=== PATIENT | male | born 1950 | race African-American/Black ===

== ENCOUNTER 2017-02-06 09:17 | Emergency (ER) | payer MEDICARE, OTHER ==
[2017-02-06 10:00] VITALS: BP 133/71
--- NOTE | 2017-02-06 11:01 | UC ---
Throat Pain/Nasal Anatoly HPI - HPI Summary HPI Summary: Pain in R throat, R ear with swallowing, has noticed painful lump on R side of neck starting 3 days ago. No nasal congestion, chronic cough of several months has not changed in recent days. Denies vomiting. - History of Current Complaint Chief Complaint: UCRespiratory Stated Complaint: SORE THROAT EAR PAIN Time Seen by Provider: 02/06/17 10:49 Hx Obtained From: Patient Onset/Duration: Gradual Onset, Lasting Days Severity: Moderate Cough: Nonproductive Associated Signs & Symptoms: Negative: Wheezing, Sinus Discomfort, Nasal Discharge, Vomiting, Rash - Allergies/Home Medications Allergies/Adverse Reactions: Allergies Allergy/AdvReac Type Severity Reaction Status Date / Time Seasonal Allergies Allergy Sneezing Uncoded 08/06/15 10:38 PMH/Surg Hx/FS Hx/Imm Hx Endocrine History Of: Denies: Diabetes, Thyroid Disease Cardiovascular History Of: Reports: Cardiac Disorders - Atrial Fibrillation, Hypertension Denies: Myocardial Infarction Respiratory History Of: Denies: COPD, Asthma GI/ History Of: Reports: Gastrointestinal Bleed Denies: Ulcer - Surgical History Surgical History: None - Family History Known Family History: Positive: Hypertension - Social History Occupation: Retired Alcohol Use: Occasionally Substance Use Type: None Smoking Status (MU): Former Smoker Type: Cigarettes When Did the Patient Quit Smoking/Using Tobacco: 2013 Household Exposure Type: Cigarettes - Immunization History Most Recent Influenza Vaccination: pt states he doesn't recieve the flu vaccine anymore Most Recent Tetanus Shot: > 10 years Review of Systems Constitutional: Fever Skin: Negative Eyes: Negative ENT: Sore Throat, Ear Ache Respiratory: Negative Cardiovascular: Negative Gastrointestinal: Negative Genitourinary: Negative Motor: Negative Neurovascular: Negative Musculoskeletal: Negative Neurological: Negative Psychological: Negative All Other Systems Reviewed And Are Negative: Yes Physical Exam Triage Information Reviewed: Yes Appearance: Well-Appearing, No Pain Distress, Well-Nourished Vital Signs: Initial Vital Signs Temp 97.8 F 02/06/17 09:56 Pulse 73 02/06/17 09:56 Resp 18 02/06/17 09:56 BP 133/71 02/06/17 09:56 Pulse Ox 100 02/06/17 09:56 Eye Exam: Normal Eyes: Positive: Conjunctiva Clear ENT: Positive: Pharyngeal erythema - R tonsil, TMs normal, Tonsillar swelling. Negative: Nasal congestion, Nasal drainage, TM bulging, TM dull, TM red, Tonsillar exudate Dental Exam: Normal Neck: Positive: Tenderness @, Enlarged Nodes @ - R ant cervical node Respiratory Exam: Normal Respiratory: Positive: Chest non-tender, Lungs clear, Normal breath sounds, No respiratory distress, No accessory muscle use Cardiovascular Exam: Normal Cardiovascular: Positive: RRR, No Murmur Musculoskeletal Exam: Normal Musculoskeletal: Positive: ROM Intact Neurological Exam: Normal Neurological: Positive: Alert Psychological Exam: Normal Skin Exam: Normal Throat Pain/Nasal Course/Dx - Differential Dx/Diagnosis Provider Diagnoses: tonsillitis Discharge - Discharge Plan Condition: Stable Disposition: HOME Prescriptions: Amoxicillin (*) [Amoxicillin 875 MG (*)] 875 mg PO BID #10 tab Patient Education Materials: Tonsillitis (ED) Referrals: Danial Fitzpatrick MD [Primary Care Provider] - Additional Instructions: If you are not fever-free and clearly improving within 48 hours, please see Dr. Fitzpatrick or return here for follow-up.
== END 2017-02-06 11:10 | disposition home or self-care (01) ==
LOC: UCEAST 09:17
DX: J03.90 Acute tonsillitis, unspecified (principal); I48.91 Unspecified atrial fibrillation; I10 Essential (primary) hypertension
CPT/HCPCS: 87651; 99212; G0463

== ENCOUNTER 2017-09-26 10:54 | Emergency (ER) | payer MEDICARE, OTHER ==
[2017-09-26 11:20] VITALS: BP 137/80
--- NOTE | 2017-09-26 13:16 | RAD ---
INDICATION: Right knee injury COMPARISON: None TECHNIQUE: AP, lateral, tunnel, and sunrise views were obtained. FINDINGS: There are no acute bony findings. The osseous structures appear normal for age. There is minimal spurring tibial spines. Joint spaces are preserved. There is no suprapatellar joint effusion. There are distal SFA and popliteal arterial calcifications. IMPRESSION: NO ACUTE BONY FINDINGS.
--- NOTE | 2017-09-26 13:19 | UC ---
Knee Pain HPI - HPI Summary HPI Summary: c/o worsening right knee pain- - History of Current Complaint Chief Complaint: UCLowerExtremity Stated Complaint: KNEE INJURY Time Seen by Provider: 09/26/17 12:36 Hx Obtained From: Patient Onset/Duration: Gradual Onset, Worse Since - walking up stairs and feeling a pop a couple of days a go Severity Initially: Moderate Severity Currently: Moderate Location Of Injury: right knee Character: Aching, Throbbing Aggravating Factor(s): Movement, Weight Bearing Alleviating Factor(s): Rest, Position Associated Signs And Symptoms: Positive: Swelling Able to Bear Weight: Yes - Allergies/Home Medications Allergies/Adverse Reactions: Allergies Allergy/AdvReac Type Severity Reaction Status Date / Time Seasonal Allergies Allergy Sneezing Uncoded 09/26/17 11:20 Home Medications: Home Medications B-Complex Vitamins [Vitamin B Complex] 1 tab PO DAILY 09/26/17 [History Confirmed 09/26/17] Metoprolol Tartrate TAB* [Lopressor TAB*] 25 mg PO DAILY 09/26/17 [History Confirmed 09/26/17] PMH/Surg Hx/FS Hx/Imm Hx Previously Healthy: No Endocrine History: Dyslipidemia Cardiovascular History: Hypertension - Surgical History Surgical History: None - Family History Known Family History: Positive: Hypertension - Social History Occupation: Retired Lives: With Family Alcohol Use: Daily Alcohol Amount: 1 beer Substance Use Type: None Smoking Status (MU): Former Smoker Type: Cigarettes When Did the Patient Quit Smoking/Using Tobacco: 2013 Household Exposure Type: Cigarettes - Immunization History Most Recent Influenza Vaccination: Not uTD Most Recent Tetanus Shot: > 10 years Review of Systems Constitutional: Negative Skin: Negative Eyes: Negative ENT: Negative Respiratory: Negative Cardiovascular: Negative Gastrointestinal: Negative Genitourinary: Negative Motor: Negative Neurovascular: Negative Musculoskeletal: Arthralgia - right knee Neurological: Negative Psychological: Negative Is Patient Immunocompromised?: No All Other Systems Reviewed And Are Negative: Yes Physical Exam Triage Information Reviewed: Yes Appearance: Well-Appearing, No Pain Distress, Well-Nourished Vital Signs: Initial Vital Signs Temp 98.1 F 09/26/17 11:15 Pulse 87 09/26/17 11:15 Resp 16 09/26/17 11:15 BP 137/80 09/26/17 11:15 Pulse Ox 100 09/26/17 11:15 Vital Signs Reviewed: Yes Eye Exam: Normal Eyes: Positive: Conjunctiva Clear ENT Exam: Normal ENT: Positive: Normal ENT inspection, Hearing grossly normal. Negative: Nasal drainage, Trismus, Muffled voice, Hoarse voice Dental Exam: Normal Neck exam: Normal Neck: Positive: Supple, Nontender Respiratory Exam: Normal Respiratory: Positive: Chest non-tender, No respiratory distress, No accessory muscle use Cardiovascular Exam: Normal Cardiovascular: Positive: RRR, Pulses Normal, Brisk Capillary Refill Musculoskeletal Exam: Normal Musculoskeletal: Positive: Strength Intact, ROM Intact, No Edema Neurological Exam: Normal Neurological: Positive: Alert, Muscle Tone Normal Psychological Exam: Normal Skin Exam: Normal Diagnostics - Radiology No standard instances Xray Interpretation: No Acute Changes - minimal bone spurring and normal changes for age Radiology Interpretation Completed By: Radiologist Knee Pain Course/Dx - Course Course Of Treatment: gentle exercise, elastic support antiinflammatories forr with Dr. Victoria (patient preference) - Differential Dx/Diagnosis Provider Diagnoses: Right Knee mild arthritis Discharge - Discharge Plan Condition: Stable Disposition: HOME Prescriptions: Meloxicam(NF) [Mobic(NF)] 7.5 mg PO BID #40 tab Patient Education Materials: Osteoarthritis (ED) Referrals: David Victoria MD [Medical Doctor] - 1 Week
== END 2017-09-26 13:25 | disposition home or self-care (01) ==
LOC: UCEAST 10:54
DX: M17.11 Unilateral primary osteoarthritis, right knee (principal); M25.561 Pain in right knee; E78.5 Hyperlipidemia, unspecified; I10 Essential (primary) hypertension; Z87.891 Personal history of nicotine dependence
CPT/HCPCS: 99212; G0463

== ENCOUNTER 2017-10-30 12:08 | Emergency (ER) | payer OTHER ==
[2017-10-30 12:23] VITALS: BP 107/65
--- NOTE | 2017-11-21 10:03 | UC ---
Respiratory Complaint HPI - HPI Summary HPI Summary: 67yo pt c/o nasal congestion and some sore throat x 2 days, but cough has been persistent for about 2 weeks associated with pleuritic chest pain. - History of Current Complaint Chief Complaint: UCRespiratory Stated Complaint: COUGH Time Seen by Provider: 10/30/17 13:26 Hx Obtained From: Patient Onset/Duration: Gradual Onset Severity Initially: Moderate Pain Intensity: 0 Pain Scale Used: 0-10 Numeric - Allergies/Home Medications Allergies/Adverse Reactions: Allergies Allergy/AdvReac Type Severity Reaction Status Date / Time No Known Allergies Allergy Verified 10/30/17 12:20 PMH/Surg Hx/FS Hx/Imm Hx Previously Healthy: Yes - Surgical History Surgical History: None - Family History Known Family History: Positive: Hypertension - Social History Alcohol Use: Daily Alcohol Amount: 1 beer Substance Use Type: None Smoking Status (MU): Former Smoker Type: Cigarettes When Did the Patient Quit Smoking/Using Tobacco: 2012 Household Exposure Type: Cigarettes - Immunization History Most Recent Influenza Vaccination: Not uTD Most Recent Tetanus Shot: > 10 years Review of Systems Constitutional: Negative Skin: Negative Eyes: Negative ENT: Nasal Discharge, Sinus Congestion Respiratory: Cough, Other - plueritic chest pain with mild yellow sputum Cardiovascular: Negative Gastrointestinal: Negative Genitourinary: Negative Motor: Negative Neurovascular: Negative Musculoskeletal: Negative Neurological: Negative Psychological: Negative All Other Systems Reviewed And Are Negative: Yes Physical Exam Triage Information Reviewed: Yes Appearance: No Pain Distress Vital Signs: Initial Vital Signs Temp 36.6 C 10/30/17 12:21 Pulse 88 10/30/17 12:21 Resp 20 10/30/17 12:21 BP 107/65 10/30/17 12:21 Pulse Ox 100 10/30/17 12:21 Eye Exam: Normal Eyes: Positive: Conjunctiva Clear ENT Exam: Normal ENT: Positive: Pharyngeal erythema, Nasal congestion Dental Exam: Normal Neck exam: Normal Neck: Positive: 1 Respiratory Exam: Normal Respiratory: Positive: Rhonchi - with cough Cardiovascular Exam: Normal Abdominal Exam: Normal Musculoskeletal Exam: Normal Neurological Exam: Normal Psychological Exam: Normal Skin Exam: Normal UC Diagnostic Evaluation - Laboratory O2 Sat by Pulse Oximetry: 100 Respiratory Course/Dx - Course Course Of Treatment: Z nacho for protracted cough with sputum/acute bronchitis - Differential Dx/Diagnosis Provider Diagnoses: Acute bronchitis Discharge - Discharge Plan Condition: Stable Disposition: HOME Prescriptions: Azithromycin TAB* [Zithromax TAB (Z-NACHO) 250 mg #6 tabs] 2 tab PO .TODAY, THEN 1 DAILY #1 nacho Patient Education Materials: Acute Bronchitis (ED) Referrals: Danial Fitzpatrick MD [Primary Care Provider] - Additional Instructions: as tolerated
== END 2017-10-30 13:53 | disposition home or self-care (01) ==
LOC: UCEAST 12:08
DX: J20.9 Acute bronchitis, unspecified (principal); Z87.891 Personal history of nicotine dependence
CPT/HCPCS: 99212; G0463

== ENCOUNTER 2018-10-20 11:08 | Emergency (ER) | payer MEDICARE, OTHER ==
[2018-10-20 11:30] VITALS: BP 115/75
[2018-10-20] MEDS ORDERED: Azithromycin TAB* 250 MG PO ONE (11:39)
--- NOTE | 2018-10-20 11:44 | UC ---
Respiratory Complaint HPI - HPI Summary HPI Summary: 68 yo B male c/o cough with yellow sputum x 2 weeks associated with pleuritic CP , denies f/c, NON smoker - History of Current Complaint Chief Complaint: UCGeneralIllness Stated Complaint: COUGH CONGESTION Time Seen by Provider: 10/20/18 11:30 Hx Obtained From: Patient Onset/Duration: Sudden Onset Severity Initially: Moderate Severity Currently: Moderate Pain Intensity: 0 Character: Cough: Productive Associated Signs And Symptoms: Positive: Pleuritic Chest Pain. Negative: Nasal Congestion - Allergies/Home Medications Allergies/Adverse Reactions: Allergies Allergy/AdvReac Type Severity Reaction Status Date / Time No Known Allergies Allergy Verified 10/20/18 11:17 Home Medications: Home Medications Aspirin 81 mg CHEW TAB* 81 mg PO DAILY 10/20/18 [History Confirmed 10/20/18] PMH/Surg Hx/FS Hx/Imm Hx - Surgical History Surgical History: None - Family History Known Family History: Positive: Hypertension - Social History Alcohol Use: Occasionally Alcohol Amount: 1 beer Substance Use Type: None Smoking Status (MU): Former Smoker Type: Cigarettes When Did the Patient Quit Smoking/Using Tobacco: 2012 Household Exposure Type: Cigarettes - Immunization History Most Recent Influenza Vaccination: Not uTD Most Recent Tetanus Shot: > 10 years Review of Systems All Other Systems Reviewed And Are Negative: Yes Constitutional: Positive: Negative Skin: Positive: Negative Eyes: Positive: Negative ENT: Positive: Negative Respiratory: Positive: Cough Cardiovascular: Positive: Negative Gastrointestinal: Positive: Negative Genitourinary: Positive: Negative Musculoskeletal: Positive: Negative Neurological: Positive: Negative Psychological: Positive: Negative Physical Exam - Summary Physical Exam Summary: Vital Signs Reviewed: Yes Skin: Positive: Warm Head/Face: Positive: Normal Head/Face Inspection Eyes: Positive: Normal ENT: Positive: Normal ENT inspection Neck: Positive: Supple Respiratory/Lung Sounds: Positive: diffuse rhonchi with cough Cardiovascular: Positive: Normal, RRR, S1, S2 Abdomen Description: Positive: Nontender Musculoskeletal: Positive: Normal Neurological: Positive: Normal Psychiatric: Positive: Normal, Affect/Mood Appropriate Vital Signs: Initial Vital Signs Temp 36.8 C 10/20/18 11:20 Pulse 82 10/20/18 11:20 Resp 18 10/20/18 11:20 BP 115/75 10/20/18 11:20 Pulse Ox 96 10/20/18 11:20 UC Diagnostic Evaluation - Laboratory O2 Sat by Pulse Oximetry: 96 Respiratory Course/Dx - Differential Dx/Diagnosis Provider Diagnosis: Bronchitis Discharge - Sign-Out/Discharge Documenting (check all that apply): Patient Departure All imaging exams completed and their final reports reviewed: Yes - Discharge Plan Condition: Stable Disposition: HOME Prescriptions: Azithromycin TAB* [Zithromax TAB (Z-NACHO) 250 mg #6 tabs] 2 tab PO .TODAY, THEN 1 DAILY 5 Days #1 nacho Patient Education Materials: Acute Bronchitis (ED) Additional Instructions: PLEASE [employer]ED [employer] OFF[employer]ER MUCINEX DM OVER THE COUNTER AND TAKE ONE TAB EVERY 12 HRS DIRECTED - Billing Disposition and Condition Condition: STABLE Disposition: Home
== END 2018-10-20 11:52 | disposition home or self-care (01) ==
LOC: UCEAST 11:08
DX: J40 Bronchitis, not specified as acute or chronic (principal); Z79.82 Long term (current) use of aspirin; Z87.891 Personal history of nicotine dependence
CPT/HCPCS: 99212; A9270-GY; G0463

== ENCOUNTER 2018-11-16 09:39 | Emergency (ER) | payer MEDICARE ==
[2018-11-16 10:01] VITALS: BP 118/76
--- NOTE | 2018-11-16 10:07 | UC ---
Lower Extremity/Ankle HPI - HPI Summary HPI Summary: Patient is a 68-year-old male who presents to the urgent care with a chief complaint of not improving he's a right foot cellulitis. He reports "I need an instructed antibiotics". He reports that he has been taking Keflex for the last 10 days. He reports the swelling still present and the redness still present. He also reports that he would not go to the emergency department for further workup and management. He denies any fever denies any chills, he denies any Pain, denies any shortness of breath, chest pain or palpitations. - History of Current Complaint Chief Complaint: UCLowerExtremity Stated Complaint: FOOT PAIN Time Seen by Provider: 11/16/18 09:42 Pain Intensity: 3 - Allergies/Home Medications Allergies/Adverse Reactions: Allergies Allergy/AdvReac Type Severity Reaction Status Date / Time No Known Allergies Allergy Verified 11/16/18 09:51 Home Medications: Home Medications Ibuprofen 400 mg PO ONCE PRN 11/16/18 [History Confirmed 11/16/18] PMH/Surg Hx/FS Hx/Imm Hx Previously Healthy: Yes Endocrine History: Dyslipidemia Cardiovascular History: Hypertension - Surgical History Surgical History: None - Family History Known Family History: Positive: Hypertension - Social History Alcohol Use: Occasionally Alcohol Amount: 1 beer Substance Use Type: None Smoking Status (MU): Former Smoker Type: Cigarettes When Did the Patient Quit Smoking/Using Tobacco: 2013 Household Exposure Type: Cigarettes - Immunization History Most Recent Influenza Vaccination: Not uTD Most Recent Tetanus Shot: > 10 years Review of Systems All Other Systems Reviewed And Are Negative: Yes Constitutional: Positive: Negative Skin: Positive: Other - Right foot swelling and erythema ENT: Positive: Negative Respiratory: Positive: Negative Cardiovascular: Positive: Negative Gastrointestinal: Positive: Negative Genitourinary: Positive: Negative Motor: Positive: Negative Neurovascular: Positive: Negative Musculoskeletal: Positive: Negative Neurological: Positive: Negative Psychological: Positive: Negative Is Patient Immunocompromised?: No Physical Exam - Summary Physical Exam Summary: VITAL SIGNS: Reviewed. GENERAL: Patient is a well developed and nourished male who is sitting comfortable in the stretcher. Patient is not in any acute respiratory distress. HEAD AND FACE: Normocephalic and atraumatic. EYES: PERRLA, EOMI x 2, EARS: Hearing grossly intact. MOUTH: Oropharynx within normal limits. NECK: Supple, trachea is midline, no adenopathy, no JVD, no carotid bruit, no c- spine tenderness, neck with full ROM. CHEST: Symmetric, no tenderness at palpation LUNGS: CTA B/L. No wheezing or crackles. CVS: RRR, S1 and S2 present, no murmurs or gallops appreciated. ABDOMEN: Soft, NT, No distention. Normal BS. EXTREMITIES: FROM in all major joints, positive right foot swelling and erythema. Good pulses and good capillary.. No calf tenderness. NEURO: Alert and oriented x 3. No acute neurological deficits. Speech is normal and follows commands. Vital Signs: Initial Vital Signs Temp 97 F 11/16/18 09:44 Pulse 81 11/16/18 09:44 Resp 18 11/16/18 09:44 BP 118/76 11/16/18 09:44 Pulse Ox 95 11/16/18 09:44 Lower Extremity Course/Dx - Course Course Of Treatment: I believe that the patient would benefit of I believe further workup and management in the ER however the patient refuses. He only wants to get her menstrual antibiotic to see if the symptoms improved. Therefore the patient will be given Bactrim and discontinue the Keflex. However , the patient was instructed strongly, that the patient should go to the ER if the swelling and redness do not improve in the next 12 hours. The patient understands and agrees. Therefore the patient will be discharged home with follow-up with PCP or go to the ER if the symptoms do not improve. At this time the patient is hemodynamically stable alert and oriented 3. - Differential Dx/Diagnosis Differential Diagnosis/HQI/PQRI: Cellulitis, Contusion, Fracture (Closed), Sprain, Strain Provider Diagnosis: Cellulitis Discharge - Sign-Out/Discharge Documenting (check all that apply): Patient Departure All imaging exams completed and their final reports reviewed: No - Discharge Plan Condition: Good Disposition: HOME Prescriptions: Sulfamethox/Trimethoprim DS* [Bactrim DS 800/160 TAB*] 1 tab PO BID #20 tab Patient Education Materials: Cellulitis (ED) Referrals: Danial Fitzpatrick MD [Primary Care Provider] - Additional Instructions: Take medications as instructed and adhere to plan Take Acetaminophen or ibuprofen for pain or fever Increase your fluid intake Return to the or go to the emergency department if symptoms worsen Follow-up with primary care physician in next 2-3 days - Billing Disposition and Condition Condition: GOOD Disposition: Home
--- NOTE | 2018-11-16 16:40 | UC ---
Course/Dx - Diagnoses Provider Diagnoses: Cellulitis Discharge - Sign-Out/Discharge Documenting (check all that apply): Post-Discharge Follow Up All imaging exams completed and their final reports reviewed: No Studies - Discharge Plan Condition: Good Disposition: HOME Prescriptions: Sulfamethox/Trimethoprim DS* [Bactrim DS 800/160 TAB*] 1 tab PO BID #20 tab Patient Education Materials: Cellulitis (ED) Referrals: Danial Fitzpatrick MD [Primary Care Provider] - Additional Instructions: Take medications as instructed and adhere to plan Take Acetaminophen or ibuprofen for pain or fever Increase your fluid intake Return to the or go to the emergency department if symptoms worsen Follow-up with primary care physician in next 2-3 days - Billing Disposition and Condition Condition: GOOD Disposition: Home
== END 2018-11-16 10:18 | disposition home or self-care (01) ==
LOC: UCEAST 09:39
DX: L03.115 Cellulitis of right lower limb (principal); Z87.891 Personal history of nicotine dependence
CPT/HCPCS: 99212; G0463

== ENCOUNTER 2019-02-19 07:27 | Emergency (ER) | payer MEDICARE ==
[2019-02-19 07:48] VITALS: BP 119/69
--- NOTE | 2019-02-19 08:32 | UC ---
General HPI - HPI Summary HPI Summary: Pleasant 68 yo gentleman c/o cough last couple weeks, progressively worse. Tired of being sick, tired of coughing. No fever / chills. No sob /cp. No hemoptysis. No GI / issues. No rash. - History of Current Complaint Chief Complaint: UCRespiratory Stated Complaint: COUGH Time Seen by Provider: 02/19/19 07:49 Hx Obtained From: Patient, Family/Esthetician Pain Intensity: 0 - Allergy/Home Medications Allergies/Adverse Reactions: Allergies Allergy/AdvReac Type Severity Reaction Status Date / Time No Known Allergies Allergy Verified 02/19/19 07:48 PMH/Surg Hx/FS Hx/Imm Hx Previously Healthy: Yes - Surgical History Surgical History: Yes - Family History Known Family History: Positive: Hypertension - Social History Alcohol Use: Occasionally Alcohol Amount: 1 beer Substance Use Type: None Smoking Status (MU): Former Smoker Type: Cigarettes When Did the Patient Quit Smoking/Using Tobacco: 2012 Household Exposure Type: Cigarettes - Immunization History Most Recent Influenza Vaccination: Not uTD Most Recent Tetanus Shot: > 10 years Review of Systems All Other Systems Reviewed And Are Negative: Yes Constitutional: Positive: Negative Skin: Positive: Negative Eyes: Positive: Negative ENT: Positive: Sore Throat, Nasal Discharge, Sinus Congestion Respiratory: Positive: Cough Cardiovascular: Positive: Negative Gastrointestinal: Positive: Negative Genitourinary: Positive: Negative Motor: Positive: Negative Neurovascular: Positive: Negative Musculoskeletal: Positive: Negative Neurological: Positive: Negative Psychological: Positive: Negative Is Patient Immunocompromised?: No Physical Exam Triage Information Reviewed: Yes Appearance: Well-Appearing, Well-Nourished Vital Signs: Initial Vital Signs Temp 98.2 F 02/19/19 07:43 Pulse 79 02/19/19 07:43 Resp 16 02/19/19 07:43 BP 119/69 02/19/19 07:43 Pulse Ox 99 02/19/19 07:43 Vital Signs Reviewed: Yes Eye Exam: Normal ENT: Positive: Pharyngeal erythema - mild red, c/w cough, Nasal congestion, TM dull Neck exam: Normal Neck: Positive: Supple Respiratory Exam: Other - + rhonchorus cough, tight. No rtx. Respiratory: Positive: No respiratory distress, No accessory muscle use Cardiovascular Exam: Normal Cardiovascular: Positive: RRR, Pulses Normal, Brisk Capillary Refill Abdominal Exam: Normal Abdomen Description: Positive: Nontender Musculoskeletal Exam: Normal - grossly nonfocal Neurological Exam: Normal - grossly nonfocal Psychological Exam: Normal - conversing easily and appropriately, nad Skin Exam: Normal - no visible or reported rash. Nondiaphoretic. Course/Dx - Course Course Of Treatment: Reviewed coa / tx plan. Questions as posed answered to the best of my ability. - Diagnoses Provider Diagnosis: Bronchitis, Bronchospasm Discharge - Sign-Out/Discharge Documenting (check all that apply): Patient Departure All imaging exams completed and their final reports reviewed: No Studies - Discharge Plan Condition: Stable Disposition: HOME Prescriptions: Albuterol HFA INHALER* [Ventolin HFA Inhaler*] 1 - 2 puff INH Q6H PRN #1 mdi PRN Reason: Wheezing Azithromyxin NACHO (NF) [Z-Nacho (Zithromax) 250 mg tabs #6] 2 tab PO .TODAY, THEN 1 DAILY #6 tab Patient Education Materials: Acute Bronchitis (ED), Bronchospasm (ED) Referrals: Danial Fitzpatrick MD [Primary Care Provider] - Additional Instructions: Please follow up with Dr. Fitzpatrick, per routine. Seek medical attention for worse or new problems in the meantime. - Billing Disposition and Condition Condition: STABLE Disposition: Home
--- NOTE | 2019-02-19 08:44 | UC ---
General HPI - HPI Summary HPI Summary: 68 yo gentleman c/o 1 to 1 1/2 week cough. started with sore throat, not anymore, minimal productive. No fever / chills. + household contact with similar sx. No rash. No GI issue. No vis / aud changes. Some ear pain earlier, not now. No issues reported. No edema in legs. sleeps with one pillow. - History of Current Complaint Chief Complaint: UCRespiratory Stated Complaint: COUGH Time Seen by Provider: 02/19/19 07:49 Hx Obtained From: Patient, Family/Family Preservation Caseworker Pain Intensity: 0 - Allergy/Home Medications Allergies/Adverse Reactions: Allergies Allergy/AdvReac Type Severity Reaction Status Date / Time No Known Allergies Allergy Verified 02/19/19 07:48 PMH/Surg Hx/FS Hx/Imm Hx Previously Healthy: Yes - Surgical History Surgical History: None - Family History Known Family History: Positive: Hypertension - Social History Alcohol Use: Occasionally Alcohol Amount: 1 beer Substance Use Type: None Smoking Status (MU): Former Smoker Type: Cigarettes When Did the Patient Quit Smoking/Using Tobacco: 2013 Household Exposure Type: Cigarettes - Immunization History Most Recent Influenza Vaccination: Not uTD Most Recent Tetanus Shot: > 10 years Review of Systems All Other Systems Reviewed And Are Negative: Yes Constitutional: Positive: Negative Skin: Positive: Negative, Other - see hpi Eyes: Positive: Negative, Other - see hpi ENT: Positive: Other - see hpi Respiratory: Positive: Other - see hpi Cardiovascular: Positive: Other - see hpi Gastrointestinal: Positive: Other - see hpi Genitourinary: Positive: Other - see hpi Motor: Positive: Other - see hpi Neurovascular: Positive: Other - see hpi Musculoskeletal: Positive: Other: - see hpi Neurological: Positive: Other - see hpi Psychological: Positive: Negative Physical Exam Triage Information Reviewed: Yes Appearance: Well-Appearing, Well-Nourished Vital Signs: Initial Vital Signs Temp 98.2 F 02/19/19 07:43 Pulse 79 02/19/19 07:43 Resp 16 02/19/19 07:43 BP 119/69 02/19/19 07:43 Pulse Ox 99 02/19/19 07:43 Vital Signs Reviewed: Yes Eye Exam: Normal ENT: Positive: TM dull, Other - post oropharynx mild red no sores uvula midline Neck exam: Normal Neck: Positive: Supple, Nontender, No Lymphadenopathy Respiratory: Positive: No respiratory distress, No accessory muscle use, Other: - BS equal, full inspr. + rhonchorus cough, with mild exp wheeze. No rtx. Cardiovascular Exam: Normal Cardiovascular: Positive: RRR, No Murmur, Pulses Normal, Brisk Capillary Refill Abdominal Exam: Normal Abdomen Description: Positive: Nontender Musculoskeletal Exam: Normal Musculoskeletal: Positive: Strength Intact, No Edema Neurological Exam: Normal Psychological Exam: Normal Skin Exam: Normal Course/Dx - Course Course Of Treatment: reviewed coa / tx plan ]questions as posed answered to the best of my ability. - Diagnoses Provider Diagnosis: Bronchitis, Bronchospasm Discharge - Sign-Out/Discharge Documenting (check all that apply): Patient Departure All imaging exams completed and their final reports reviewed: No Studies - Discharge Plan Condition: Stable Disposition: HOME Prescriptions: Albuterol HFA INHALER* [Ventolin HFA Inhaler*] 1 - 2 puff INH Q6H PRN #1 mdi PRN Reason: Wheezing Azithromyxin NACHO (NF) [Z-Nacho (Zithromax) 250 mg tabs #6] 2 tab PO .TODAY, THEN 1 DAILY #6 tab Patient Education Materials: Acute Bronchitis (ED), Bronchospasm (ED) Referrals: Danial Fitzpatrick MD [Primary Care Provider] - Additional Instructions: Please follow up with Dr. Fitzpatrick, per routine. Seek medical attention for worse or new problems in the meantime. - Billing Disposition and Condition Condition: STABLE Disposition: Home
== END 2019-02-19 08:53 | disposition home or self-care (01) ==
LOC: UCEAST 07:27
DX: J20.9 Acute bronchitis, unspecified (principal); Z87.891 Personal history of nicotine dependence
CPT/HCPCS: 99212; G0463

== ENCOUNTER 2019-03-13 21:40 | Emergency (ER) | payer MEDICARE ==
[2019-03-13] MEDS ORDERED: Oxymetazoline 0.05% NASAL SPR* 15 ML BTL RIGHT NARE ONE (21:50)
--- NOTE | 2019-03-13 22:17 | ED ---
Throat Pain/Nasal Congestion - HPI Summary HPI Summary: 68-year-old male presents with nosebleed today. He states that the bleeding out of his right naris for the past hour. He is on daily aspirin. Denies any history of nosebleed. He states he has had nosebleeds intermittently over the past day but this lasted the longest. Denies any dizziness or palpitations. No other symptoms. Has been applying pressure to the area. - History of Current Complaint Chief Complaint: EDEpistaxis Time Seen by Provider: 03/13/19 21:49 - Allergies/Home Medications Allergies/Adverse Reactions: Allergies Allergy/AdvReac Type Severity Reaction Status Date / Time No Known Allergies Allergy Verified 02/19/19 07:48 PMH/Surg Hx/FS Hx/Imm Hx Endocrine/Hematology History: Denies: Hx Anticoagulant Therapy, Hx Diabetes, Hx Thyroid Disease Cardiovascular History: Reports: Hx Hypercholesterolemia - dyslipidemia, Hx Hypertension Denies: Hx Angina, Hx Coronary Artery Disease, Hx Myocardial Infarction, Hx Valvular Heart Disease Respiratory History: Denies: Hx Asthma, Hx Chronic Obstructive Pulmonary Disease (COPD) GI History: Reports: Hx Gastrointestinal Bleed Denies: Hx Ulcer Sensory History: Reports: Hx Contacts or Glasses - reading glasses, not with pt Opthamlomology History: Reports: Hx Contacts or Glasses - reading glasses, not with pt Infectious Disease History: No Infectious Disease History: Denies: Hx Clostridium Difficile, Hx Hepatitis, Hx Human Immunodeficiency Virus (HIV), Hx of Known/Suspected MRSA, Hx Shingles, Hx Tuberculosis, Hx Known/ Suspected VRE, Hx Known/Suspected VRSA, History Other Infectious Disease, Traveled Outside the [place] in Last 30 Days - Family History Known Family History: Positive: Hypertension - Social History Alcohol Use: Occasionally Alcohol Amount: 1 beer Substance Use Type: Reports: None Smoking Status (MU): Former Smoker Type: Cigarettes Review of Systems Negative: Fever Positive: Epistaxis Negative: Chest Pain Negative: Shortness Of Breath All Other Systems Reviewed And Are Negative: Yes Physical Exam Triage Information Reviewed: Yes Vital Signs On Initial Exam: Initial Vitals Temp Pulse Resp BP Pulse Ox 97.7 F 80 17 147/82 100 03/13/19 21:43 03/13/19 21:43 03/13/19 21:43 03/13/19 21:43 03/13/19 21:43 Vital Signs Reviewed: Yes Appearance: Positive: Well-Appearing Skin: Positive: Warm, Dry Head/Face: Positive: Normal Head/Face Inspection Eyes: Positive: Normal, EOMI, MARY, Conjunctiva Clear ENT: Positive: Pharynx normal, Other - bleeding from right nares Respiratory/Lung Sounds: Positive: Clear to Auscultation, Breath Sounds Present Cardiovascular: Positive: Normal, RRR Abdomen Description: Positive: Nontender, Soft Bowel Sounds: Positive: Present Musculoskeletal: Positive: Normal Neurological: Positive: Normal Psychiatric: Positive: Normal Diagnostics - Vital Signs Vital Signs Temp Pulse Resp BP Pulse Ox 03/13/19 21:43 97.7 F 80 17 147/82 100 - Laboratory Lab Statement: Any lab studies that have been ordered have been reviewed, and results considered in the medical decision making process. Re-Evaluation - Re-Evaluation First Eval Re-Evaluation Time: 22:50 Comment: still bleeding so will place rhinorocket Second Eval Re-Evaluation Time: 23:37 Comment: no bleeding EENT Course/Dx - Course Course Of Treatment: 68-year-old male presents with nosebleed today. He states that the bleeding out of his right naris for the past hour. He is on daily aspirin. Denies any history of nosebleed. He states he has had nosebleeds intermittently over the past day but this lasted the longest. Denies any dizziness or palpitations. No other symptoms. Has been applying pressure to the area. On exam has bleeding from the right naris. Place Afrin and pressure and bleeding seemed to stop. When went to reevaluate and removed pressure bleeding restarted. Placed txa on area and was able to see the spot that was able to cauterize. Patient was observed here for 20 more minutes and no rebleeding occurred. Patient's will be to discharge follow-up with ENT if having recurrent issues. Gave Afrin and told to hold pressure if bleeding returns. Patient understands agrees the plan. - Differential Diagnoses Differential Diagnoses: Epistaxis, URI/Bronchitis - Diagnoses Provider Diagnoses: Nosebleed Discharge - Sign-Out/Discharge Documenting (check all that apply): Patient Departure Patient Received Moderate/Deep Sedation with Procedure: No - Discharge Plan Condition: Good Disposition: HOME Patient Education Materials: Nosebleed (ED) Referrals: Nestor Herrera MD [Medical Doctor] - Danial Fitzpatrick MD [Primary Care Provider] - Additional Instructions: if nose rebleeds apply afrin and pressure follow up with ENT if have continue issues with nose bleed use nasal saline in nose Return to ED if develop any new or worsening symptoms - Billing Disposition and Condition Condition: GOOD Disposition: Home
[2019-03-13] MEDS ORDERED: Tranexamic Acid 1,000 MG/10 ML SDV TOPICAL ONE (22:43)
[2019-03-13] MEDS ORDERED: Lidocaine 2% JELLY* 10 ML JELLY TOPICAL ONE (22:46)
[2019-03-13] MEDS ORDERED: Lidocaine 2% JELLY* 6 ML JELLY TOPICAL ONE (23:00)
[2019-03-13] MEDS ORDERED: Silver Nitrate/Potassium Nitr* 1 EA STICK TOPICAL ONE (23:13)
[2019-03-13] MEDS ORDERED: Silver Nitrate/Potassium Nitr* 1 EA STICK ONE (23:14)
[2019-03-13] MEDS ORDERED: Oxymetazoline 0.05% NASAL SPR* 15 ML BTL BOTH NARES ONE (23:35)
[2019-03-14] VITALS: BP 151/69
== END 2019-03-13 23:59 | disposition home or self-care (01) ==
LOC: ED 21:40
DX: R04.0 Epistaxis (principal); Z87.891 Personal history of nicotine dependence
CPT/HCPCS: 99282; A9270-GY

== ENCOUNTER 2019-03-17 11:07 | Emergency (ER) | payer MEDICARE ==
[2019-03-17 11:21] VITALS: BP 123/65
--- NOTE | 2019-03-17 11:42 | UC ---
Respiratory Complaint HPI - HPI Summary HPI Summary: 68 yo male presents with cough for the last 4 days. He states he can hear wheezing in his lungs. He tells me that he gets bronchitis similar to this once or twice a year and that a zpak always makes it go away in a few days. He is a former smoker, but quit 6 years ago. He denies fever, sinus symptoms, sore throat, chest pain, SOB. Took robitussin OTC with little relief - History of Current Complaint Chief Complaint: UCRespiratory Stated Complaint: COUGH CONGESTION SORE THROAT Time Seen by Provider: 03/17/19 11:42 Hx Obtained From: Patient Onset/Duration: Gradual Onset Severity Initially: Moderate Severity Currently: Severe Pain Intensity: 8 Pain Scale Used: 0-10 Numeric Character: Cough: Nonproductive - Allergies/Home Medications Allergies/Adverse Reactions: Allergies Allergy/AdvReac Type Severity Reaction Status Date / Time No Known Allergies Allergy Verified 03/17/19 11:21 Home Medications: Home Medications Acetaminophen [Acetaminophen Extra Strength] 1,000 mg PO 03/17/19 [History] PMH/Surg Hx/FS Hx/Imm Hx Endocrine History: Dyslipidemia Cardiovascular History: Hypertension, Atrial Fibrillation Respiratory History: COPD Other History Of: Negative For: Anticoagulant Therapy - Surgical History Surgical History: Yes - Family History Known Family History: Positive: Hypertension - Social History Lives: With Family Alcohol Use: Occasionally Alcohol Amount: 1 beer Substance Use Type: None Smoking Status (MU): Former Smoker Type: Cigarettes When Did the Patient Quit Smoking/Using Tobacco: 2013 Household Exposure Type: Cigarettes - Immunization History Most Recent Influenza Vaccination: Not uTD Most Recent Tetanus Shot: > 10 years Review of Systems All Other Systems Reviewed And Are Negative: Yes Constitutional: Positive: Negative Skin: Positive: Negative Eyes: Positive: Negative ENT: Positive: Negative Respiratory: Positive: Cough Cardiovascular: Positive: Negative Gastrointestinal: Positive: Negative Neurovascular: Positive: Negative Neurological: Positive: Negative Psychological: Positive: Negative Physical Exam - Summary Physical Exam Summary: GENERAL: NAD. WDWN. No pain distress. SKIN: No rashes, sores, lesions, or open wounds. HEENT: Head: AT/NC Eyes: Conjunctiva clear without inflammation or discharge. Ears: Hearing grossly normal. TMs intact, no bulging, erythema, or edema. Nose: Nasal mucosa pink and moist. NTTP maxillary and frontal sinus. Throat: Posterior oropharynx without exudates, erythema, or tonsillar enlargement. Uvula midline. NECK: Supple. Nontender. No lymphadenopathy. CHEST: Mild wheezing at lung bases. No r/r. No accessory muscle use. Breathing comfortably and in no distress. CV: Pulses intact. Cap refill <2seconds NEURO: Alert. PSYCH: Age appropriate behavior. Triage Information Reviewed: Yes Vital Signs: Initial Vital Signs Temp 98.7 F 03/17/19 11:16 Pulse 53 03/17/19 11:16 Resp 18 03/17/19 11:16 BP 123/65 03/17/19 11:16 Pulse Ox 95 03/17/19 11:16 Vital Signs Reviewed: Yes Respiratory Course/Dx - Course Course Of Treatment: Discussed obtaining a CXR today, but pt declined . Discussed viral vs bacterial causes of his cough and he prefers to be on antibiotics at this time. Will rx for zpak, but strongly encouraged to return if his symptoms worsen or do not improve over the next 7 days. - Differential Dx/Diagnosis Provider Diagnosis: Bronchitis Discharge - Sign-Out/Discharge Documenting (check all that apply): Patient Departure All imaging exams completed and their final reports reviewed: No Studies - Discharge Plan Condition: Stable Disposition: HOME Prescriptions: Azithromycin TAB* [Zithromax TAB (Z-NACHO) 250 mg #6 tabs] 2 tab PO .TODAY, THEN 1 DAILY #1 nacho Patient Education Materials: Acute Bronchitis (ED) Referrals: Danial Fitzpatrick MD [Primary Care Provider] - Additional Instructions: If you develop a fever, shortness of breath, chest pain, new or worsening symptoms - please call your PCP or go to the ED immediately. - Billing Disposition and Condition Condition: STABLE Disposition: Home
== END 2019-03-17 12:14 | disposition home or self-care (01) ==
LOC: UCEAST 11:07
DX: J40 Bronchitis, not specified as acute or chronic (principal); Z87.891 Personal history of nicotine dependence
CPT/HCPCS: 99212; G0463